=== PATIENT | male | born 1960 | race Caucasian/White ===

== ENCOUNTER 2016-08-23 09:17 | Outpatient (CLI) | payer OTHER ==
--- NOTE | 2016-08-26 08:24 | ULT ---
ABDOMINAL ULTRASOUND 08/23/16 COMPARISON: None. HISTORY: 56-year-old male with elevated liver function tests. TECHNIQUE: Multiplanar shepherd scale sonographic imaging of the right upper quadrant provided. FINDINGS: Secondary to body habitus and bowel gas, the pancreas is completely obscured. Imaged IVC appears rea ssly unremarkable. The abdominal aorta is completely obscured by bowel gas as well. The visualized portions of the liver are heterogeneous and demonstrate an irregular echotexture, taylor picious for hepatocellular disease. The common bile duct is not well seen secondary to bowel gas. The gallbladder wall is upper limits o f normal in thickness. There are stones layering within the gallbladder lumen. No pericholecystic fl uid is seen. The calculating machine mechanic reports a negative Becker's sign. No ascites is seen in the upper abdom en. The spleen is enlarged, measuring up to 22 cm in craniocaudal dimension, suggesting portal hypertens ion. Detailed assessment of the right kidney is limited secondary to overlying bowel gas. The right kidne y measures 12.1 cm in craniocaudal dimension and demonstrates no stone, hydronephrosis or mass. Left kidney measures 11.8 cm in craniocaudal dimension and demonstrates no stone, hydronephrosis or mass lesion. IMPRESSION: 1. The liver is heterogeneous and irregular, evidence of hepatocellular disease. 2. Marked splenomegaly, evidence of portal hypertension. 3. No ascites is seen on this exam. 4. Cholelithiasis. No evidence for cholecystitis or biliary dilatation. Of note, the common bile duct cannot be visualized secondary to bowel gas. POS: [facility]
== END 2016-08-23 09:18 | disposition home or self-care (01) ==
LOC: BBPBJX 09:17 → BURULT 09:17
PROVIDERS: ATTEND Physician Assistant
DX: K76.89 Other specified diseases of liver (principal); K80.20 Calculus of gallbladder without cholecystitis without obstruction; K76.6 Portal hypertension; R16.1 Splenomegaly, not elsewhere classified
CPT/HCPCS: 76700

== ENCOUNTER 2021-03-20 21:53 | Emergency (ER) | payer OTHER ==
[2021-03-20 22:22] LABS: #Lymphocytes 0.2 thou/uL (1.20-3.40); #Monocytes 0.3 thou/uL (0.11-0.59); #Neutrophils 3.9 thou/uL (1.40-6.50); %Basophils 1.1 % (0.0-1.0); %Eosinophils 0.1 % (0.0-10.0); %Lymphocytes 4.6 % (21.0-51.0); %Monocytes 6.5 % (0.0-10.0); %Neutrophils 87.7 % (42.0-75.0); INR-International Normal Ratio 1.5; Mean Corpuscular HGB CONC 34.3 g/dL (32.0-36.0); Mean Corpuscular Hemoglobin 33.7 pg (27.0-31.0); Mean Corpuscular Volume 98.3 fL (78.0-98.0); Mean Platelet Volume 4.8 fL (7.4-10.4); PTT 40.5 sec (22.9-36.1); Platelet Count 40 thou/uL (130-400); Prothrombin Time 18.7 sec (12.0-14.7); RBC Distribution Width 14.3 % (11.5-14.5); Red Blood Cell (RBC) Count 2.95 mill/uL (4.70-6.10); White Blood Cell (WBC) Count 4.4 thou/uL (4.8-10.8)
[2021-03-20 22:28] LABS: ALT (SGPT) 17 U/L (8-55); AST (SGOT) 32 U/L (5-34); Albumin 2.5 g/dL (3.5-5.0); Alkaline Phosphatase 107 U/L (40-110); Anion Gap 14 mmol/L (10-20); BUN (Urea Nitrogen) 17 mg/dL (8.4-25.7); Bilirubin, Total 3.3 mg/dL (0.2-1.2); Calc. Creatinine Clearance 0 mL/min (70-130); Calcium 7.9 mg/dL (7.8-10.44); Carbon Dioxide 19 mmol/L (22-29); Chloride 108 mmol/L (98-107); Globulin 3.9 g/dL (2.4-3.5); Glucose 143 mg/dL (70-105); Potassium 4.1 mmol/L (3.5-5.1); Protein, Total 6.4 g/dL (6.0-8.3); Sodium 137 mmol/L (136-145)
[2021-03-20] MEDS ORDERED: Acetaminophen 500 MG TAB ONE ×2 (22:42→22:45)
[2021-03-20 22:51] LABS: Platelet Morphology Comment Appears Decreased
[2021-03-20 22:54] LABS: Acetaminophen Less than 6.0 mcg/mL (10.0-30.0); Alcohol Less than 10 mg/dL (Less than 10); Salicylate Less than 8.0 mg/dL (15.0-30.0)
[2021-03-20 23:46] LABS: SARS-CoV-2 NAA Rapid Test Not Detected (NotDetected)
[2021-03-21 01:06] LABS: Lactic Acid 2.2 mmol/L (0.5-2.2)
[2021-03-21] MEDS ORDERED: metroNIDAZOLE 500 MG/100 ML BAG ONE (01:25)
[2021-03-21] MEDS ORDERED: cefTRIAXone\\ROCEPHIN 1 GM VIAL ONE (01:25)
[2021-03-21] MEDS ORDERED: Sodium Chloride 0.9% 100 ML ONE (01:26)
[2021-03-21 01:45] LABS: CKMB 2.4 ng/mL (0-6.6)
[2021-03-21] MEDS ORDERED: Aspirin Chewable 81 MG TAB ONE (02:04)
== END 2021-03-21 03:20 | disposition home or self-care (01) ==
LOC: BURERS 21:53
DX: K70.30 Alcoholic cirrhosis of liver without ascites (principal); R41.82 Altered mental status, unspecified; R18.8 Other ascites; D69.6 Thrombocytopenia, unspecified; Z20.822 Contact with and (suspected) exposure to COVID-19; Z79.899 Other long term (current) drug therapy
CPT/HCPCS: 36415; 71045; 80053; 80307; 82140; 82553; 83605; 83880; 84484; 85025; 85610; 85730; 87040; 93005; 96365; 96368; J0696; J3490; U0002